=== PATIENT | male | born 2000 | race Caucasian/White ===

== ENCOUNTER 2025-03-16 09:39 | Emergency (ER) | payer SELFPAY ==
[2025-03-16] MEDS: Ondansetron 4 MG Tab.DIS PO ONE (10:34)
[2025-03-16] MEDS: Alum Hydrox/Mag Hydrox/Simeth 15 ML, Metoclopramide 5 MG, Lidocaine 2% 5 ML PO ONE (11:10)
== END 2025-03-16 11:45 | disposition home or self-care (01) ==
LOC: MW.ED 09:39
DX: B34.9 Viral infection, unspecified (principal); Z75.3 Unavailability and inaccessibility of health-care facilities; Z91.09 Other allergy status, other than to drugs and biological substances; Z79.899 Other long term (current) drug therapy
CPT/HCPCS: 87428; 99284; A9270; 99283

== ENCOUNTER 2025-04-07 19:55 | Emergency (ER) | payer SELFPAY | END 2025-04-07 21:10 | disposition left against medical advice (07) | LOC: MW.ED 19:55 | DX: Z53.21 Procedure and treatment not carried out due to patient leaving prior to being seen by health care provider (principal) ==

== ENCOUNTER 2025-08-09 21:16 | Emergency (ER) | payer MEDICAID | END 2025-08-09 21:49 | disposition home or self-care (01) | LOC: MW.ED 21:16 | DX: K04.7 Periapical abscess without sinus (principal); Z75.3 Unavailability and inaccessibility of health-care facilities; Z91.048 Other nonmedicinal substance allergy status; Z88.0 Allergy status to penicillin | CPT/HCPCS: 99282; 99284 ==

== ENCOUNTER 2025-11-05 18:06 | Emergency (ER) | payer SELFPAY ==
[2025-11-05] MEDS ORDERED: Sodium Chloride 0.9% 10 ML Syringe FLUSH PRN (18:27)
[2025-11-05] MEDS ORDERED: Sodium Chloride 0.9% 2.5 ML Syringe FLUSH PRN (18:27)
[2025-11-05] MEDS: Ketorolac 30 MG/ML SDV IVPUSH ONE (19:04)
[2025-11-05 19:22] LABS: BASOPHILS ABSOLUTE AUTO 0.04 K/uL (0.00-0.20); BASOPHILS PERCENT AUTO 0.3 % (0.0-1.0); EOSINOPHILS ABSOLUTE AUTO 0.03 K/uL (0.00-0.45); EOSINOPHILS PERCENT AUTO 0.2 % (0.0-6.0); IMMATURE GRAN ABSOLUTE AUTO 0.05 K/uL (0.00-0.05); IMMATURE GRAN PERCENT AUTO 0.4 % (0.0-0.4); LYMPHOCYTES ABSOLUTE AUTO 1.90 K/uL (1.00-4.80); LYMPHOCYTES PERCENT AUTO 13.8 % (24.0-44.0); MEAN PLATELET VOLUME 9.4 fL (9.4-12.4); MONOCYTES ABSOLUTE AUTO 0.69 K/uL (0.00-0.80); MONOCYTES PERCENT AUTO 5.0 % (0.0-8.0); NEUTROPHILS ABSOLUTE AUTO 11.03 K/uL (1.80-7.70); NEUTROPHILS PERCENT AUTO 80.3 % (41.0-71.0); NRBC ABSOLUTE 0.00 K/uL (0.00-0.02); NRBC PERCENT 0.0 /100WBC (0.0-0.2); PLATELET COUNT,PLT 270 K/uL (150-400); RED BLOOD CELL COUNT 4.95 M/uL (4.52-5.90); WHITE BLOOD CELL COUNT,WBC 13.74 K/uL (3.9-11.3)
[2025-11-05 19:30] LABS: APPEARANCE,URINE CLEAR; GLUCOSE,URINE NEGATIVE (NEGATIVE); OCCULT BLOOD,URINE NEGATIVE (NEGATIVE)
[2025-11-05 19:43] LABS: A/G RATIO 1.4 (0.9-1.6); ALANINE AMINOTRANSFERASE,ALT 36.0 IU/L (14-63); ASPARTATE AMNIOTRANSFERASE,AST 20.0 IU/L (15-37); BILIRUBIN TOTAL 0.5 mg/dL (0.2-1.0); BLOOD UREA NITROGEN,BUN 17.0 mg/dL (7.0-18.0); CARBON DIOXIDE,CO2 25.8 mmol/L (21.0-32.0); CHLORIDE,CL 108.0 mmol/L (98-107); CREATININE 1.1 mg/dL (0.8-1.3); EST CRCL DRUG DOSING (CG) 104.44 mL/min; ESTIMATED GFR 97.0 mL/min (>60); GLUCOSE RANDOM 87.0 mg/dL (74-106); POTASSIUM,K 3.5 mmol/L (3.5-5.1); PROTEIN TOTAL,TP 7.0 g/dL (6.4-8.2); SODIUM,NA 145.0 mmol/L (136-148)
== END 2025-11-05 20:09 | disposition home or self-care (01) ==
LOC: MW.ED 18:06
DX: M54.9 Dorsalgia, unspecified (principal); E86.0 Dehydration; Z90.49 Acquired absence of other specified parts of digestive tract; Z88.0 Allergy status to penicillin; Z88.8 Allergy status to other drugs, medicaments and biological substances; Z79.899 Other long term (current) drug therapy; Z75.3 Unavailability and inaccessibility of health-care facilities
CPT/HCPCS: 36415; 71250; 72128; 72131; 74176; 80053; 81003; 85025; 96361; 96374; 96375; 99284; J1885; J2270; J7030